=== PATIENT | male | born 1990 | race Caucasian/White ===

== ENCOUNTER 2019-03-12 09:58 | Day surgery (SDC) | payer BC ==
[~2019-03-12] VITALS: Ht 177.8 cm; Wt 83.9 kg
[2019-03-12] MEDS ORDERED: ONDANSETRON HCL 4 MG/2 ML VIAL IVP PRN (14:00)
[2019-03-12] MEDS ORDERED: HYDROmorphone 1 MG INJ. 1 MG/ML AMPUL IVP PRN (14:00)
[2019-03-12] MEDS ORDERED: MUPIROCIN 2% TOPICAL OINTMENT 22 GM ONE (15:37)
[2019-03-12] MEDS ORDERED: MIDAZOLAM HCL 5 MG/ML VIAL (VERSED) IV ONE (15:37)
[2019-03-12] MEDS ORDERED: PROPOFOL 200MG/ 20ML VIAL (DIPRIVAN) IV ONE (15:37)
[2019-03-12] MEDS ORDERED: DESFLURANE 15 MIN GAS INH ONE (15:37)
[2019-03-12] MEDS ORDERED: fentaNYL CITRATE/PF 100 MCG/2 ML AMP ONE (15:37)
[2019-03-12] MEDS ORDERED: LR 1,000 ML IV.SOLN IV ONE (15:37)
[2019-03-12] MEDS ORDERED: NS IRRIG SOLN 1000 ML IR ONE (15:37)
[2019-03-12] MEDS ORDERED: BUPIVACAINE /EPINEPHRINE/PF 0.25% 30 ML VIAL INJ ONE (15:37)
[2019-03-12] MEDS ORDERED: LIDOCAINE/EPI 1% 1:100000 20 ML VIAL INJ ONE (15:37)
[2019-03-12] MEDS ORDERED: DEXAMETHASONE SOD PHOSPHATE 4 MG/ML VIAL ONE (15:37)
[2019-03-12 16:44] VITALS: BP_SYST 155
[2019-03-12] MEDS ORDERED: MORPHINE 2 MG/ML INJ. SYRINGE IVP ONE (16:45)
[2019-03-12] MEDS ORDERED: MORPHINE SULFATE 10 MG/ML VIAL ONE (16:52)
[2019-03-12] MEDS ORDERED: ONDANSETRON HCL 4 MG/2 ML VIAL ONE (17:02)
== END 2019-03-12 18:52 | disposition home or self-care (01) ==
LOC: SDS 09:58 → SMU 09:58 → SDS 18:52
PROVIDERS: ATTEND Otolaryngology
DX: J34.89 Other specified disorders of nose and nasal sinuses (principal); J35.3 Hypertrophy of tonsils with hypertrophy of adenoids; G47.33 Obstructive sleep apnea (adult) (pediatric); J34.2 Deviated nasal septum; F17.200 Nicotine dependence, unspecified, uncomplicated
CPT/HCPCS: 30140; 30520; 42821; 88304; 88305; 88311; J1100; J2250; J2270; J2405; J2704; J3010; J3490; J7120